=== PATIENT | female | born 1975 | race Caucasian/White ===

== ENCOUNTER 2018-01-05 18:43 | Emergency (ER) | payer OTHER ==
[~2018-01-05] VITALS: Ht 177.8 cm; Wt 125.0 kg
[2018-01-05] MEDS ORDERED: SYNTHROID137 MCG PO (18:47)
[2018-01-05 19:08] LABS: EOS # 0.1 (0.04-0.40); EOS % 1.3 % (1.0-5.0); HEMATOCRIT 40.9 % (37.0-47.0); HEMOGLOBIN 13.3 g/dL (12.5-16.0); LYMPH# 1.8 (1.50-4.00); MEAN CELL VOLUME 81 fl (78-100); MEAN CORPUSCULAR HEMOGLOBIN 26 pg (27-31); MEAN CORPUSCULAR HGB CONC 33 g/dL (33-37); MONO # 0.5 (0.20-0.80); NEU # 3.6 (1.40-6.50); PLATELET COUNT 285 K/mm3 (130-400); RED BLOOD COUNT 5.07 M/mm3 (4.10-5.30); RED CELL DISTRIBUTION WIDTH 14.3 % (11.5-14.5)
[2018-01-05 19:25] LABS: ALBUMIN 4.1 g/dL (3.5-5.0); BUN/CREATININE RATIO 20.9 (6.0-26.0); CALCIUM 8.9 mg/dL (8.4-10.2); POTASSIUM 3.8 mmol/L (3.6-5.0); TOTAL BILIRUBIN 0.3 mg/dL (0.2-1.3); TOTAL PROTEIN 7.4 g/dL (6.3-8.2)
[2018-01-05 19:31] LABS: CKMB ISOENZYME 0.8 ng/mL (0.6-3.5)
[2018-01-05 19:33] LABS: TROPONIN-I < 0.03 ng/mL (0.00-0.06)
[2018-01-05 20:16] LABS: URINE APPEARANCE HAZY; URINE COLOR YELLOW
[2018-01-05 20:17] LABS: PH-URINE 5.5 (5.0 - 8.0); URINE BILIRUBIN NEGATIVE (NEGATIVE); URINE BLOOD NEGATIVE (NEGATIVE); URINE GLUCOSE NEGATIVE (NEGATIVE); URINE KETONE NEGATIVE (NEGATIVE); URINE LEUKOCYTE ESTERASE NEGATIVE (NEGATIVE); URINE NITRATE NEGATIVE (NEGATIVE); URINE PROTEIN(semi-quant) NEGATIVE (NEGATIVE); URINE UROBILINOGEN NORMAL (NORMAL); URINE WBC 0-1 /hpf (0-3)
[2018-01-05 20:18] LABS: URINE MUCUS PRESENT (NOT PRESENT)
[2018-01-05 21:50] VITALS: BP 121/80
== END 2018-01-05 21:50 | disposition home or self-care (01) ==
LOC: ED 18:43
PROVIDERS: Nurse Practitioner Family
DX: R07.89 Other chest pain (principal); R00.2 Palpitations; R00.0 Tachycardia, unspecified; E06.3 Autoimmune thyroiditis